=== PATIENT | male | born 2000 | race Caucasian/White ===

== ENCOUNTER 2022-03-07 21:15 | Emergency (ER) | payer OTHER ==
[~2022-03-07] VITALS: Ht 177.8 cm; Wt 89.6 kg
[2022-03-07 21:16] VITALS: BP 143/90
[2022-03-08] MEDS ORDERED: NS 1,000 ML IV ONE (00:25)
== END 2022-03-08 01:43 | disposition home or self-care (01) ==
LOC: M ED 21:15
DX: L55.9 Sunburn, unspecified (principal)